=== PATIENT | male | born 1955 | race Caucasian/White ===

== ENCOUNTER 2024-01-20 22:18 | Emergency (ER) | payer MEDICARE, OTHER, SELFPAY ==
[2024-01-20 22:19] VITALS: BP 145/81; BMI 22.5
[2024-01-20 22:21] VITALS: BP 145/81
[2024-01-20 22:33] LABS: % Basophils 0.6 % (0-2); % Eosinophils 2.3 % (0-6); % Immature Granulocytes 0.2 % (0-0.5); % Lymphocytes 25.5 % (20.5-51.1); % Monocytes 7.2 % (1.7-9.3); % Neutrophils 64.2 % (42.2-75.2); Absolute Eosinophils 0.1 10^3/uL (0-0.7); Absolute Lymphocytes 1.2 10^3/uL (1.2-3.4); Absolute Monocytes 0.4 10^3/uL (0.1-0.6); Absolute Neutrophils 3.1 10^3/uL (1.4-6.5); Hemoglobin 12.9 g/dL (13.0-18.0); Mean Corp Hgb Conc. 35.8 g/dL (33.0-37.0); Mean Corpuscular Hgb 32.8 pg (27.0-31.0); Mean Corpuscular Volume 91.6 fL (80.0-94.0); Mean Platelet Volume 9.5 fL (7.4-10.4); Nucleated Red Blood Cells % 0 % (-); Platelet Count 217 10^3/uL (130-400); Red Blood Cell Count 3.93 10^6/uL (4.70-6.10); Red Cell Dist. Width 12.3 % (11.5-14.5); White Blood Cell Count 4.8 10^3/uL (4.8-10.8)
[2024-01-20 22:56] LABS: ALT (SGPT) 23 U/L (0-50); AST (SGOT) 30 U/L (17-59); Albumin 4.3 g/dl (3.5-5.0); Alkaline Phosphatase 64 U/L (38-126); Blood Urea Nitrogen 21 mg/dl (9-20); Calcium 9.1 mg/dl (8.4-10.2); Carbon Dioxide 26 mmol/L (22-30); Chloride 103 mmol/L (98-107); Estimated Creatinine Clearance 106 ml/min; Glucose 116 mg/dl (70-99); Potassium 3.6 mmol/L (3.5-5.1); Sodium 136 mmol/L (135-145); Total Bilirubin 0.6 mg/dl (0.2-1.3); eGFR > 60.00
[2024-01-20 23:00] VITALS: BP 146/85
[2024-01-21] VITALS: BP 148/88
--- NOTE | 2024-01-21 00:01 | ED.GENMED ---
History of Present Illness
<ANABELLA Camargo - Last Filed: 01/21/24 04:44>
General
Chief Complaint: Fainting/Passed Out
Source: patient and significant other
Exam Limitations: none
Time Seen by Provider: 01/20/24 23:50
Nursing documentation reviewed up to this point in time: agreed with
Travel History
Have you had any contact with someone who has COVID-19?: No
Do you have any symptoms of coronavirus? Fever > 100 degrees, chills, cough, shortness of breath, sore throat, loss of taste or smell, muscle aches, or headache?: No
History of Present Illness
History of Present Illness:
This is a 68 year old male with a PMH of HTN, atrial fibrillation, and GERD, who presents to the ED via EMS s/p syncopal episode. Pt states he he was sitting on his recliner after drinking 1 beer and smoking 1 joint when he passed out for around 30
seconds. Pt states he was feeling very lightheaded prior to the episode. Pt's called EMS and they had the patient lay back, where he had another, shorter, syncopal episode. Pt was also hypotensive and disoriented after the episode. Pt denies
any CP, SOB, MALAGON, nausea, or vomiting.
Pt drinks alcohol and smokes weed on the weekends. He denies any other drug use. Pt exercises 3x weekly by lifting weights and walking. He denies any symptoms of lightheadedness, dizziness, CP, or SOB during exercise. Pt does add that he had a
similar syncopal episode over 5 years ago but he was never examined by a medical provider for it.
Past History
<ANABELLA Camargo - Last Filed: 01/21/24 04:44>
Past History
ED Past Medical History: Arrthythmia (atrial fibrillation), GERD and HTN
Patient has exhibited threatening behavior?: No
Social History
Alcohol: Other (weekends)
Drug: Marijuana
Personal:
Living: with family
Review of Systems
<Caleb Bueno [facility] - Last Filed: 01/21/24 04:44>
Review of Systems
Other source history: family
All Other Systems: ROS reviewed and negative except as documented in HPI and ROS
Constitutional: Reports no symptoms
EENT: Reports no symptoms
Respiratory: Reports no symptoms; Denies trouble breathing
Cardiac: Reports syncope; Denies chest pain
ABD/GI: Reports no symptoms; Denies nausea or vomiting
: Reports no symptoms
Musculoskeletal: Reports no symptoms
Skin: Reports no symptoms
Neurological: Reports other (lightheaded); Denies headache
Psychiatric: Reports no symptoms
Phy Exam
<Caleb Christytarun [facility] - Last Filed: 01/21/24 04:44>
General Physical Exam
General Presentation: well appearing and no apparent distress
General age: appears stated age
General Skin: warm and dry
General Habitus: normal
General Mental: alert
General Hydration: appears well hydrated
ENT Exam
ENT Exam: EOMI, pharynx normal, normocephalic and swallowing well
Eye Exam
Eye Exam: PERRL and EOMI
Cardiovascular Exam
Cardiovascular Exam: regular rate/rhythm, no edema, no murmur and normal peripheral pulses
Heart Sounds: normal
Pulmonary Exam
Pulmonary Exam: lungs clear, no respiratory distress, no rales, no crackles, no rhonchi, no wheezing and no cough
Gastrointestinal Exam
Gastrointestinal Exam: normal bowel sounds, non tender, soft and non distended
Neurological Exam
Neurological Exam: alert, oriented x3, no motor deficits, no sensory deficits and speech normal
Musculoskeletal Exam
Musculoskeletal Exam: full ROM and no edema
Skin Exam
Skin Exam: normal color and warm/dry
Psychiatric Exam
Psychiatric Exam: normal mood/affect
Course
<ANABELLA Camargo - Last Filed: 01/21/24 04:44>
Orders/Labs/Results
Orders:
Orders
01/20/24 22:27
Complete Blood Count/With Diff Urgent
Comprehensive Metabolic Panel Urgent
01/21/24 00:14
Electrocardiogram (*1) Urgent
Reason for Study: Syncope
EKG- Treatment ONCE
01/21/24 00:32
Troponin I Urgent
01/21/24 01:12
Electrocardiogram (*1) Urgent
Reason for Study: Syncope
01/21/24 01:13
EKG- Treatment ONCE
Abnormal Lab Results
01/20/24
22:27
RBC 3.93 L 10^6/uL
(4.70-6.10)
Hgb 12.9 L g/dL
(13.0-18.0)
Hct 36.0 L %
(39.0-52.0)
MCH 32.8 H pg
(27.0-31.0)
BUN 21 H mg/dl
(9-20)
Glucose 116 H mg/dl
(70-99)
01/20/24 22:27
01/20/24 22:27
Vital Signs
Initial and Last Documented VS:
Initial Vital Signs
Temp Pulse Resp BP Pulse Ox
97.5 F 55 12 145/81 98
01/20/24 22:19 01/20/24 22:19 01/20/24 22:19 01/20/24 22:19 01/20/24 22:19
Last Documented Vital Signs
Temp Pulse Resp BP Pulse Ox
97.5 F 63 16 161/91 97
01/20/24 22:19 01/21/24 02:00 01/21/24 02:00 01/21/24 02:00 01/21/24 02:00
<Nando Moreno, DO - Last Filed: 01/21/24 01:54>
Orders/Labs/Results
Orders:
Orders
01/20/24 22:27
Complete Blood Count/With Diff Urgent
Comprehensive Metabolic Panel Urgent
01/21/24 00:14
Electrocardiogram (*1) Urgent
Reason for Study: Syncope
EKG- Treatment ONCE
01/21/24 00:32
Troponin I Urgent
01/21/24 01:12
Electrocardiogram (*1) Urgent
Reason for Study: Syncope
01/21/24 01:13
EKG- Treatment ONCE
Abnormal Lab Results
01/20/24
22:27
RBC 3.93 L 10^6/uL
(4.70-6.10)
Hgb 12.9 L g/dL
(13.0-18.0)
Hct 36.0 L %
(39.0-52.0)
MCH 32.8 H pg
(27.0-31.0)
BUN 21 H mg/dl
(9-20)
Glucose 116 H mg/dl
(70-99)
01/20/24 22:27
01/20/24 22:27
Vital Signs
Initial and Last Documented VS:
Initial Vital Signs
Temp Pulse Resp BP Pulse Ox
97.5 F 55 12 145/81 98
01/20/24 22:19 01/20/24 22:19 01/20/24 22:19 01/20/24 22:19 01/20/24 22:19
Last Documented Vital Signs
Temp Pulse Resp BP Pulse Ox
97.5 F 63 16 161/91 97
01/20/24 22:19 01/21/24 02:00 01/21/24 02:00 01/21/24 02:00 01/21/24 02:00
<ANABELLA Camargo - Last Filed: 01/21/24 04:44>
*Critical Care Note
Total Time (30-74mins, 75-104mins- exclusive of procedures): Not Applicable
ED Attending Note
<ANABELLA Camargo - Last Filed: 01/21/24 04:44>
-
Portions of this chart may have been created with voice recognition software.� Occasional wrong word or��sound alike� substitutions may have occurred due to the inherent limitations of voice recognition software.
<Nando Moreno DO - Last Filed: 01/21/24 01:54>
ED Attending Note
Patient seen and examined by attending physician: Yes
I performed the substantive portion of visit, reviewed & personally made and approve the management plan that is documented in note by myself or MANJIT.: Yes
ED Attending Note:
I have seen and evaluated the patient with a [id number] encounter. I have spoken to the advance practicer provider and involved in the medical history, the physical exam, medical decision making.
Evaluation and management service: agree unless noted differently below.
Results interpretation: agree unless noted differently below.
Focused HPI: 68-year-old male presenting for evaluation of syncope. Patient states he felt lightheaded on the couch. His noted that he was asleep. She tried to wake him up and he was passed out for less than a minute. No seizure-like
activity. No postictal state. When EMS arrived, patient was stood up and he passed out again. Patient has a history of A-fib that was believed to be related to COVID. He has had no A-fib episodes since then. He is due to follow-up with
cardiology in February. Patient states he is feeling better now and offers no complaints. He denies chest pain or palpitations. Patient states he drank 1 beer and took 1 hit of marijuana earlier in the evening but states this is not abnormal for him
to do on the weekends. Patient states he has never had a reaction to this before
Physical exam: Sitting in bed comfortably. Heart regular rate and rhythm. Lungs clear. Not clinically intoxicated
Medical Decision Making: EKG is sinus rhythm without ischemic changes. Blood work within normal limits. Will obtain troponin and repeat EKG but discussed the importance of follow-up with cardiology. We discussed possibilities such as orthostasis
or cardiac arrhythmia that would require cardiology evaluation
Update:
Repeat EKG remains nonischemic. Patient remains symptom-free. Discussed follow-up with PCP and cardiology
Discharge Plan
Departure
Patient Disposition: Home (Routine Discharge)
Date of Disposition: 01/21/24
Time of Disposition: 01:53
Patient with high blood pressure during this ER visit?: Yes
Discharge Problem:
Syncope
Instructions: Syncope (Fainting) (DC), BLOOD PRESSURE
Referrals:
Merari Henao DO [Family Provider] -
Activity Restrictions/Additional Instructions:
Please return for any worsening symptoms.
You may return at any time if you have further concerns.
Please follow up with your doctor at the first available appointment, preferably this week. Please call the adjunct spanish instructor for expedited follow-up.
Thank you for choosing [facility].
Interventions
Interventions:
*Risk Screen - Suicide Last Done: 01/20/24 22:23
*General Assessment Last Done: 01/20/24 22:23
*Neglect/Abuse Screening Last Done: 01/20/24 22:23
ED- Fall Risk Assessment Last Done: 01/21/24 02:06
*ED COVID-19 Vaccine History Last Done: 01/20/24 22:23
*Nursing Disposition Last Done: 01/21/24 02:06
ED- Cardiac Assessment Last Done: 01/20/24 22:39
ED- Neurological Assessment Last Done: 01/20/24 22:39
Discharge Date and Time
Discharge Date/Time: 01/21/24 02:06
[2024-01-21 01:03] LABS: Troponin I < 0.012 ng/ml
[2024-01-21 02:00] VITALS: BP 161/91
== END 2024-01-21 02:06 | disposition home or self-care (01) ==
LOC: EMR 22:18
PROVIDERS: Emergency Medicine; EMERGENCY PHYSICIAN Student in an Organized Health Care Education/Training Program; FAMILY PHYSICIAN Family Medicine
DX: R55 Syncope and collapse (principal); R41.0 Disorientation, unspecified; R42 Dizziness and giddiness; I10 Essential (primary) hypertension; I48.91 Unspecified atrial fibrillation; F12.90 Cannabis use, unspecified, uncomplicated; F10.90 Alcohol use, unspecified, uncomplicated
CPT/HCPCS: 99284; 80053; 84484; 85025; 93005